=== PATIENT | female | born 1990 | race Caucasian/White ===

== ENCOUNTER 2016-08-30 12:19 | Outpatient (CLI) | payer OTHER ==
[~2016-08-30 12:19] MED LIST: CLARITIN-D 21 TABLET PO; MUCINEX D ER T1 EAC1 PO; NOHOMEMEDS; PRENATAL TABLE1 EAC3 PO; PROMETHAZINE HC25 M1 PO
[2016-08-30 12:35] VITALS: BP 133/79
[2016-08-31] MEDS ORDERED: IBUPROFEN800 MG PO (05:57)
== END 2016-08-30 13:10 | disposition home or self-care (01) ==
LOC: LDRP-OP 12:19 → 2WEST 12:20
DX: O47.1 False labor at or after 37 completed weeks of gestation (principal); O99.89 Other specified diseases and conditions complicating pregnancy, childbirth and the puerperium; Z3A.39 39 weeks gestation of pregnancy
CPT/HCPCS: 59025; G0378

== ENCOUNTER 2016-08-30 23:24 | Inpatient (IN) | payer OTHER ==
[~2016-08-30] VITALS: Ht 165.1 cm; Wt 87.2 kg
[2016-08-30 23:38] VITALS: BP 131/74
[2016-08-31] VITALS (16 sets, daily range): BP systolic 105–139; BP diastolic 60–89
[2016-08-31 04:43] LABS: EOSINOPHIL (%) 0 % (0-5); HEMATOCRIT 36.6 % (36.0-46.0); IMMATURE GRANULOCYTE (%) 0.3 % (0.0-0.7); IMMATURE GRANULOCYTE COUNT 0.6 K/uL; LYMPHOCYTE COUNT 1.6 K/uL (1.0-2.8); MCH 30.5 PG (29.0-34.0); MCHC 35.2 G/DL (30.0-36.0); MCV 86.5 FL (83-99); MEAN PLAT.VOLUME 11.3 uM^3 (9.5-12.4); MONOCYTE (%) 4.3 % (3-12); MONOCYTE COUNT 0.8 K/uL (0-0.8); NEUTROPHIL (%) 86.7 % (45-76); PLATELET COUNT 187 K/uL (156-360); RBC DIS.WIDTH-CV 12.9 % (11.8-14.6); RBC DIS.WIDTH-SD 39.7 % (39-53); RED BLOOD COUNT 4.23 M/uL (3.80-5.20); WHITE BLOOD COUNT 18.5 K/uL (4.1-10.2)
[2016-08-31] MEDS ORDERED: IBUPROFEN800 MG PO (05:57)
[2016-09-01 07:40] VITALS: BP 125/78
[2016-09-01 15:32] VITALS: BP 128/84
[2016-09-01 23:22] VITALS: BP 124/59
[2016-09-02 07:38] VITALS: BP 122/70
== END 2016-09-02 12:45 | disposition home or self-care (01) | DRG 775 ==
LOC: LDRP-OP 23:24 → 2WEST 23:25 → LDRP-OP 09-30 13:41
PROVIDERS: Nurse Practitioner
PROC: 10E0XZZ Delivery of Products of Conception, External Approach (ICD-10-PCS; principal; 2016-08-31)
PROC: 4A1H74Z Monitoring of Products of Conception, Cardiac Electrical Activity, Via Natural or Artificial Opening (ICD-10-PCS; 2016-08-31)
DX: O99.824 Streptococcus B carrier state complicating childbirth (principal); O69.81X0 Labor and delivery complicated by cord around neck, without compression, not applicable or unspecified; O26.893 Other specified pregnancy related conditions, third trimester; Z67.11 Type A blood, Rh negative; O99.214 Obesity complicating childbirth; E66.3 Overweight; O99.334 Smoking (tobacco) complicating childbirth; F17.210 Nicotine dependence, cigarettes, uncomplicated; Z3A.39 39 weeks gestation of pregnancy; Z37.0 Single live birth
CPT/HCPCS: 83030; 85025; 86850; 86870; 86900; 86901; G0378; J0595; J2540; J2790; Q0169

== ENCOUNTER 2017-11-21 13:26 | Emergency (ER) | payer OTHER ==
[~2017-11-21] VITALS: Ht 165.1 cm; Wt 89.0 kg
[~2017-11-21 13:26] MED LIST changes: +IBUPROFEN800 MG PO
[2017-11-21 14:01] LABS: APPEARANCE CLEAR ((CLEAR)); BILIRUBIN NEGATIVE; BLOOD NEGATIVE; COLOR YELLOW ((YELLOW)); GLUCOSE (STRIP) NEGATIVE; KETONES NEGATIVE; LEUKOCYTES TRACE; NITRITE NEGATIVE; PROTEIN (STRIP) NEGATIVE; SPECIFIC GRAVITY 1.011 (1.000-1.030); UROBILINOGEN 0.2 MG/DL (0.2-1.0)
[2017-11-21 14:03] LABS: BACTERIA NONE SEEN /HPF; EPITHELIAL CELLS 2+ /HPF; MUCUS TRACE /LPF; RED BLOOD CELLS 0-5 /HPF (0-5); UCUL ADDED? NO; WHITE BLOOD CELLS 0-5 /HPF (0-5)
[2017-11-21 14:07] LABS: HEMATOCRIT 37.8 % (36.0-46.0); HEMOGLOBIN 13.2 G/DL (11.9-15.5); MCH 30.4 PG (29.0-34.0); MCHC 34.9 G/DL (30.0-36.0); MCV 87.1 FL (83-99); NRBC (%) 0.3 /100 WBC (0-0); PLATELET COUNT 187 K/uL (156-360); RBC DIS.WIDTH-CV 12.5 % (11.8-14.6); RBC DIS.WIDTH-SD 39.9 % (39-53); RED BLOOD COUNT 4.34 M/uL (3.80-5.20); WHITE BLOOD COUNT 7.3 K/uL (4.1-10.2)
[2017-11-21 17:04] VITALS: BP 106/59
== END 2017-11-21 17:05 | disposition home or self-care (01) ==
LOC: EME 13:26
DX: O26.891 Other specified pregnancy related conditions, first trimester (principal); M54.5 Low back pain; O99.511 Diseases of the respiratory system complicating pregnancy, first trimester; J45.909 Unspecified asthma, uncomplicated; O99.341 Other mental disorders complicating pregnancy, first trimester; F31.9 Bipolar disorder, unspecified; Z87.891 Personal history of nicotine dependence; Z3A.01 Less than 8 weeks gestation of pregnancy
CPT/HCPCS: 76801; 81003; 84702; 85027; 99281; 99284

== ENCOUNTER 2018-02-20 10:49 | Emergency (ER) | payer OTHER ==
[~2018-02-20] VITALS: Ht 165.1 cm; Wt 88.9 kg
[2018-02-20 12:33] LABS: HEMATOCRIT 41.4 % (36.0-46.0); HEMOGLOBIN 14.4 G/DL (11.9-15.5); MCH 30.1 PG (29.0-34.0); MCHC 34.8 G/DL (30.0-36.0); MCV 86.4 FL (83-99); PLATELET COUNT 222 K/uL (156-360); RBC DIS.WIDTH-CV 11.9 % (11.8-14.6); RBC DIS.WIDTH-SD 37.9 % (39-53); RED BLOOD COUNT 4.79 M/uL (3.80-5.20)
[2018-02-20] MEDS ORDERED: FIORICET 50-301 EAC1 PO (12:37)
[2018-02-20] MEDS ORDERED: ZOFRAN ODT4 MG PO (12:37)
[2018-02-20 12:47] VITALS: BP 114/67
[2018-02-20 12:47] LABS: CHLORIDE 107 mEq/L (99-109); POTASSIUM 4.3 mEq/L (3.7-5.4); SODIUM 141 mEq/L (136-147)
[2018-02-20 12:49] LABS: GLUCOSE 92 mg/dL (70-99)
[2018-02-20 12:53] LABS: CREATININE 0.8 mg/dL (0.6-1.3); GFR ESTIMATE (CALCULATED) > 59 mL/min/; UREA NITROGEN (BUN) 15 mg/dL (9-23)
[2018-02-20 13:22] LABS: QUANTITATIVE HCG < 4.0 MIU/ML
== END 2018-02-20 12:48 | disposition home or self-care (01) ==
LOC: EME 10:49
PROVIDERS: Nurse Practitioner Family
DX: G43.909 Migraine, unspecified, not intractable, without status migrainosus (principal); J45.909 Unspecified asthma, uncomplicated; F17.200 Nicotine dependence, unspecified, uncomplicated
CPT/HCPCS: 80048; 84702; 85027; 99281; 99284; J1885